=== PATIENT | female | born 1940 | race Caucasian/White ===

== ENCOUNTER 2016-10-24 16:40 | Inpatient (IN) | payer MEDICARE, BC ==
[~2016-10-24] VITALS: Ht 160 cm; Wt 56.0 kg
--- NOTE | 2016-10-26 13:57 | HP ---
ADMIT: 10/24/2016 RM/LOC: 413 [facility] MR#: [id number] [address] [address] [place] [address] History and Physical SEX: F AGE: 76 : 1940 DATE OF SERVICE: CHIEF COMPLAINT: Confusion and a fast heart rate. HISTORY OF PRESENT ILLNESS: This is a 76-year-old female with known Alzheimer disease, presented to the emergency room with increased confusion. She has been very confused at home. Even friends and family have been very worried about her. They ultimately took her to the emergency room after being directed that way after going to [place]. Upon presentation, she was found to have atrial fibrillation with RVR. She was put on some diltiazem drip which controlled her rhythm quite nicely, and did some other testing. She has been confused since she has been here, but has been doing okay. She initially was a little agitated at times, but overall cooperative. She denies any specific complaints. She is a really poor historian. All my history is taken from her past health records. PAST MEDICAL HISTORY: Past problems include: 1. Anxiety. 2. Diabetes type 2. 3. Hyperlipidemia. 4. Hypertension. 5. Dementia. 6. Osteoporosis. 7. Chronic kidney disease, stage 3. 8. Vitamin B12 deficiency. 9. Vitamin D deficiency. PAST SURGICAL HISTORY: She has had a tonsillectomy, hysterectomy, cataract extraction, and hammertoe repair. MEDICATIONS: 1. Vitamin D 1000 units. 2. Vitamin B12 at 100 mcg. 3. Cozaar 50 mg daily. 4. Lutein 6 mg daily. 5. Olanzapine 2.5 mg p.r.n. 6. Zoloft 25 mg p.r.n. It should be noted, it is uncertain if she was really taking these medicines. ALLERGIES: SHE HAS LISTED ALLERGIES TO ASPIRIN, KEFLEX, CLONIDINE, FISH OIL, GLUCOPHAGE, GLUCOTROL, GLUCOVANCE, AMLODIPINE, PROCHLORPERAZINE, AND STARLIX. IMMUNIZATIONS: She had a flu shot last fall. She had a Pneumovax in 2009. FAMILY HISTORY: Two sisters and a brother are . She has one brother who is alive. SOCIAL HISTORY: She has never been a smoker. No alcohol use. ADMIT: 10/24/2016 RM/LOC: 413 [facility] MR#: [id number] [address] [address] [address]ENN GOLDEN [address] [place] [address] History and Physical SEX: F AGE: 76 : 1940 REVIEW OF SYSTEMS: Other complete review of systems really unobtainable per the patient's poor memory. She actually does not know why she is here when I asked her at this time. PHYSICAL EXAMINATION: VITAL SIGNS: Temperature 97.2, pulse 58, respirations 14, blood pressure 174/68, oxygen saturation 98% on room air. GENERAL: A pleasant 76-year-old female. HEENT: Pupils are equal, round, and reactive to light and accommodation. Her extraocular muscles are intact. Her throat is clear. Head is normocephalic and atraumatic. NECK: Supple. Trachea midline. Thyroid not palpable. HEART: Irregular rhythm, but normal rate, at the current time in the 50s. LUNGS: Diminished, but clear bilaterally. ABDOMEN: Soft, without any signs of tenderness. EXTREMITIES: Her lower extremities have no edema. She can move all extremities equally bilaterally. NEURO: Cranial nerves are intact. She has a poor memory. LABORATORY AND X-RAY DATA: CBC with a white count of 7.9, hemoglobin 13.7, platelets of 250. Urinalysis was unremarkable. CMP showed creatinine of 1.7, BUN 28. CK and troponin are normal. ASSESSMENT: 1. Atrial fibrillation with rapid ventricular rate. 2. Mental status changes. 3. Dementia with likely delirium. 4. Chronic kidney disease. 5. Diabetes. 6. Hypertension. 7. Hyperlipidemia. PLAN: She is admitted to the hospital. Put her on a diltiazem drip. Continue to control her rates, they are controlled well now. Try to switch her to more of a beta-shubham. Give her some medicine to control her moods at night with a little Namenda at night. We will use the Zyprexa if needed. It has been made known by the family that they do not think she can live at home anymore, so we will make long-term care plans for her while she is in the hospital as well. Bang Gonzalez MD/ jose cruz JOB #: [id number] CC: Bang Gonzalez, Attending Physician Bang Gonzalez, Family Physician
--- NOTE | 2016-10-27 22:09 | NUR ---
PT WAS YELLING OUT, HITTING AT STAFF, AND THREATENING TO "BURN DOWN THIS ROOM". PT WAS ACCUSING STAFF OF STEALING HER PURSE, KEEPING HER SHOES FROM HER, AND STEALING THE RUG ON THE BED. STAFF REASSURED PT THAT HER THINGS ARE IN FACT IN HER ROOM, STAFF SHOWED PT HER THINGS AND PT STATED: "YOU JUST PUT THOSE HERE, THOSE WERE STOLEN BEFORE." PT AMBULATED TO BATHROOM WITHOUT ASSISTANCE AND REFUSED TO USE HER WALKER OR CANE. PT ALSO REFUSED TO USE GAIT BELT. AT THIS POINT, THIS ASSISTANT MANAGER/EMBALMER CALLS ROLL MECHANIC REQUESTING ASSISTANCE WITH PT AT THIS TIME. ROLL MECHANIC ASSURED THIS ASSISTANT MANAGER/EMBALMER SHE'S GOING TO HELP, WILL CALL IN A SITTER TO ASSIST WITH HELPING KEEP PT CALM. PT FINISHES, THEN ACCUSED STAFF OF STEALING THE TOILET TISSUE, STATING: "YOU JUST WANT ME TO GET SICK, YOU WANT ME TO HAVE SORES ON MY BUTT." PT WAS REASSURED THAT THIS WAS NOT THE CASE, SHOWED PT WHERE THE TOILET TISSUE WAS, PT REPLIED: "YOU JUST PUT THAT THERE, YOU TRYING TO UPSET ME." PT COMPLETED PERICARES INDEPENDENTLY, AMBULATED BACK TO BED WITHOUT ASSISTANCE. PT ATTEMPTED TO SCRATCH THIS ASSISTANT MANAGER/EMBALMER, STATING: "I'M GOING TO MAKE YOU PAY FOR MAKING ME STAY HERE. YOU JUST WATCH." THIS ASSISTANT MANAGER/EMBALMER MOVED ARMS OUT OF PT WAY, AND REDIRECTED PT TO TRY TO GET INTO BED. PT STATED: "I'LL GET IN DAMN BED WHEN I'M DAMN GOOD AND READY." THIS ASSISTANT MANAGER/EMBALMER ASSISTED PT WITH REMAKE OF BED TO PT SATISFACTION. PT GETS INTO BED AND TELLS THIS ASSISTANT MANAGER/EMBALMER: "YOU'RE SO DAMN STUPID, YOU JUST WAIT UNTIL YOU MEET YOUR MAKER, YOU'RE GOING TO GO STRAIGHT TO HELL. YOU JUST WATCH, I'LL BE WAITING TO SEE YOU BURN." PT IN BED, CALL LIGHT WITHIN REACH, BED ALARMS ON AND ACTIVE, SITTER ARRIVES.
[2016-11-02] MEDS ORDERED: ELIQUIS2.5 MG PO (14:28)
[2016-11-02] MEDS ORDERED: LOPRESSOR50 MG PO (14:28)
[2016-11-02] MEDS ORDERED: NAMENDA10 MG PO (14:28)
[2016-11-02] MEDS ORDERED: ZYPREXA5 MG PO (14:28)
[2016-11-02] MEDS ORDERED: ZYPREXA2.5 MG PO (14:29)
[2016-11-02] MEDS ORDERED: MYCOSTATIN PWD15 GM TP (14:29)
--- NOTE | 2016-11-05 09:41 | ER ---
ADMIT: 10/24/2016 RM/LOC: 413 [facility] MR#: [id number] [address] [address] [place] [address] Emergency Room Report SEX: F AGE: 76 : 1940 DATE: 10/24/2016 CHIEF COMPLAINT: Hypertension, not taking medications. HISTORY OF PRESENT ILLNESS: This is a 76-year-old female, who shows up with friend. It sounds like she has been very confused at home. They are worried about her. She actually took her to [facility] [employer]. They then suggested that she come to the ER. PAST MEDICAL HISTORY: Hypertension, diabetes, chronic kidney disease, history of hysterectomy, CHF. HOME MEDICATIONS: We did call [facility], she has not filled any medications since June. At that time, it was: 1. Amlodipine. 2. Losartan. 3. Citrulline. ALLERGIES: FURADANTIN AND ASPIRIN. SOCIAL HISTORY: Lives at home alone. Denies any tobacco, drug, or alcohol use. FAMILY HISTORY: Noncontributory. PHYSICAL EXAMINATION: VITAL SIGNS: Blood pressure 222/74, pulse is 44, respirations 18, temperature 94 orally, oxygen saturations is 99% on room air on arrival. GENERAL APPEARANCE: She was really actually in no acute distress and smiling. She is alert, but confused. HEENT: Pharynx is moist with no tonsillar swelling or exudate. TMs are non- erythemic bilateral. HEART: Initially bradycardic, but then it goes to regular rate and rhythm. LUNGS: CTA bilaterally. No wheezes, rales, or rhonchi. ABDOMEN: Soft, nontender. No distention. SKIN: Normal color, warm, and dry except for in her genital region, she is very excoriated. EXTREMITIES: No pedal edema bilateral. NEURO AND PSYCH: She is disoriented to time and place and situation. MOOD AND AFFECT: Normal. COURSE IN THE EMERGENCY ROOM: CBC, CMP, troponin, CK, CK-MB, and UA cath and EKG was done. EKG, we did try to catch when she went up to tachycardia as high as 170s. EKG that we caught was at a rate of 77 with atrial fibrillation, which we cannot find in the old history that she has a history ADMIT: 10/24/2016 RM/LOC: 413 [facility] MR#: [id number] [address] [address] GLENN GOLDEN [facility] [place] [address] Emergency Room Report SEX: F AGE: 76 : 1940 of. CMP is normal except for BUN of 28, creatinine 1.7, glucose 110. Her CK is normal at 191, her MB is elevated at 7.9. Her relative index is increased at 4, troponin is normal at 0.015. CBC is normal. Urine is clear except for 2+ protein. Dr. Gonzalez was called. He will admit the patient. CLINICAL IMPRESSION: 1. Atrial fibrillation with rapid ventricular rate. At this time, she did get a Cardizem 5 mg push. It is at a rate of 5 mg at this time. 2. Confusion, chronic, unsure if this patient is able to take care of herself at home. DISPOSITION: She is stable at admit. ROSAURA Pacheco / Amrik Geller MD / kameronl JOB #: [id number] CC: Bang Gonzalez MD, Attending Physician Bang Gonzalez MD, Family Physician
--- NOTE | 2016-11-07 14:19 | DS ---
ADMIT: 10/24/2016 RM/LOC: 413 [facility] MR#: [id number] [address] [address] [place] [address] Discharge Summary SEX: F AGE: 76 : 1940 ADMISSION DATE: 10/24/2016 DISCHARGE DATE: 10/31/2016 DISCHARGE DIAGNOSES: 1. Dementia. 2. Atrial fibrillation with RVR (rapid ventricular response). 3. Diabetes mellitus type 2, diet controlled. 4. Hypertension. DISCHARGE MEDICATIONS: Please refer to discharge medication list. DISCHARGE INSTRUCTIONS: Regular diet. Follow up with Isabela Silver in the office in 1-2 weeks. HOSPITAL COURSE: A 76-year-old, female with dementia who was been living at home, she has had neglect, inability to care for herself, not taking her medications, she was found wandering in the street. Please see H and P for complete details regarding admission. She has history of dementia with decline over this last year. She has episodes of paranoia. She has even apparently rekeyed her house and garage a few times and lost the keys. Called the remelt pan tank operator several times due to paranoia. She has not been taking her medications, at one point did not have food in her house or refrigerator. Overall, has been declining. She was taken to the emergency room and found to be in atrial fibrillation with RVR. She was started on a Cardizem drip. She ended up converting to sinus rhythm. Diltiazem drip was weaned off. She was started on beta shubham. Cardiac enzymes were obtained at admission and were negative. She was started on Namenda for her dementia. Also started on Eliquis for anticoagulation. Therapy was consulted. Therapy was unable to work with the patient at times due to patient not cooperative. [facility] were consulted to evaluate for placement upon discharge from the ADMIT: 10/24/2016 RM/LOC: 413 [facility] MR#: [id number] [address] [address] [place] [address] Discharge Summary SEX: F AGE: 76 : 1940 hospital. She had agitation, paranoia and delirium, she was started on Zyprexa. Required a sitter at bedside due to her delirium and confusion. By October 28, she continued with delirium occasionally, worse in the evening, owner's, not as agitated as she had been. Low-dose Zyprexa was also added to the morning in the a.m. medication routine and this seemed also to help with her behaviors. Social Work was consulted regarding discharge plans, she is being evaluated to dismiss to a facility, [facility]. Condition at this time is stable, she is weak with dementia. LABORATORY DATA: See lab summary for complete details. RADIOLOGY: See radiology reports for complete details. Isabela Mcarthur APRN / Bang Gonzalez MD / vdg JOB #: [id number] CC: Bang Gonzalez MD, Attending Physician Bang Gonzalez MD, Family Physician
[2016-11-11] MEDS ORDERED: SENOKOT S1 TAB PO (14:42)
[2016-11-11] MEDS ORDERED: TYLENOL EXTRA500 M1 PO (14:42)
[2016-11-11] MEDS ORDERED: MILK OF MAGNESI10 ML PO (14:43)
[2016-11-11] MEDS ORDERED: COLACE-DPS100 MG PO (14:43)
[2016-11-11] MEDS ORDERED: MAALOX DPS30 ML PO (14:43)
[2016-11-11] MEDS ORDERED: DULCOLAX-DPS10 MG PR (14:44)
[2016-11-11] MEDS ORDERED: LUTEIN6 M1 PO (14:45)
[2016-11-11] MEDS ORDERED: ZOLOFT DPS25 MG PO (14:45)
[2016-11-11] MEDS ORDERED: VITAMIN B-121000 MCG PO (14:45)
[2016-11-11] MEDS ORDERED: VITAMIN D31000 UNIT PO (14:45)
[2016-11-11] MEDS ORDERED: ULTRAM DPS50 MG PO (14:46)
== END 2016-10-31 13:00 | disposition home or self-care (01) | DRG 309 ==
LOC: ER 16:40 → 4PCU 18:51
PROVIDERS: ADMIT Internal Medicine
DX: I48.91 Unspecified atrial fibrillation (principal); I13.0 Hypertensive heart and chronic kidney disease with heart failure and stage 1 through stage 4 chronic kidney disease, or unspecified chronic kidney disease; E11.22 Type 2 diabetes mellitus with diabetic chronic kidney disease; I50.9 Heart failure, unspecified; F02.81 Dementia in other diseases classified elsewhere, unspecified severity, with behavioral disturbance; F05 Delirium due to known physiological condition; Z23 Encounter for immunization; G30.9 Alzheimer's disease, unspecified; F22 Delusional disorders; F41.9 Anxiety disorder, unspecified; E78.5 Hyperlipidemia, unspecified; M81.0 Age-related osteoporosis without current pathological fracture; N18.3 Chronic kidney disease, stage 3 (moderate); E53.8 Deficiency of other specified B group vitamins; E55.9 Vitamin D deficiency, unspecified; R41.0 Disorientation, unspecified; I25.2 Old myocardial infarction

== ENCOUNTER 2016-11-06 10:01 | Inpatient (IN) | payer MEDICARE, BC ==
[~2016-11-06] VITALS: Ht 160 cm; Wt 61.5 kg
[~2016-11-06 10:01] MED LIST: ELIQUIS2.5 MG PO; LOPRESSOR50 MG PO; MYCOSTATIN PWD15 GM TP; NAMENDA10 MG PO; ZYPREXA2.5 MG PO; ZYPREXA5 MG PO
--- NOTE | 2016-11-07 14:19 | HP ---
ADMIT: 11/06/2016 RM/LOC: 503 [facility] MR#: [id number] [address] [address] GLENN [place] [address] History and Physical SEX: F AGE: 76 : 1940 DATE OF SERVICE: CHIEF COMPLAINT: Fall with hip pain. HISTORY OF PRESENT ILLNESS: This is a 76-year-old female, she has a history of Alzheimer's dementia, osteoporosis, and recent atrial fibrillation episode. She presented to the hospital after a fall. Upon evaluation, she was found to have a cracked left hip, is nondisplaced. Orthopedist has evaluated her and felt this potentially could be managed nonoperatively as along as she can maintain 50% weightbearing and not fall again and complete the fracture, so she has been admitted because she will need more help with skilled care. The last time she was in the hospital, she had come in from home with AFib with RVR and some increased confusion and delirium. She was then discharged to [facility]. Unfortunately, she was stumbling and falling a lot and ultimately had this fall leading to this fracture. Past History, Social History, Family History; all reviewed from her last H and P and unchanged except for the addition of atrial fibrillation with RVR. MEDICATIONS: 1. Eliquis 2.5 mg b.i.d. 2. Metoprolol 25 mg daily. 3. She is also on memantine 10 mg b.i.d. 4. She was on olanzapine 5 mg in the evening, 2.5 in the morning. 5. B12 of 1000 mcg daily. 6. Vitamin C 500 mg daily. 7. Vitamin D3 of 1000 units daily. 8. Vitamin E 400 units daily. 9. Acetaminophen p.r.n. 10.Lutein 6 mg daily. REVIEW OF SYSTEMS: Other complete review of systems negative except for her underlying poor memory. PHYSICAL EXAMINATION: VITAL SIGNS: Temp 97.3, pulse 65, respirations 16, blood pressure is 182/90. GENERAL: This is a well-appearing 76-year-old female. She is in no apparent distress. She is not oriented. She keeps saying that she is in the basement of some building, but then does acknowledge she knows this is the hospital. She is quite suspicious. HEENT: She is wearing glasses. Pupils are equal, round, and reactive to light and accommodation. Her extraocular muscles are intact. Throat is clear, but she has a little dried mucus over her soft palate. She has dentures on the top. NECK: Supple. Trachea midline. Thyroid not palpable. HEART: Regular rate and rhythm. LUNGS: Clear to auscultation bilaterally. ABDOMEN: Soft without any tenderness. EXTREMITIES: Lower extremities, no edema. She moves her right leg. Denies ADMIT: 11/06/2016 RM/LOC: 503 [facility] MR#: [id number] [address] [place] [address] [place] [address] History and Physical SEX: F AGE: 76 : 1940 moving her left and actually denies she has problem with the leg. LABORATORY AND X-RAY DATA: EKG shows incomplete right bundle branch block, looks like normal sinus rhythm. CT of her hip showed the left hip fracture. ASSESSMENT: 1. Left hip fracture. 2. Dementia. 3. Chronic kidney disease, stage 3. 4. Diabetes. 5. Osteoporosis. 6. Atrial fibrillation. 7. Anticoagulation. PLAN: She has been admitted to the hospital. We will do some therapy for, get some social work, set up correction facility. Activity will be up with assist and 50% weightbearing. Bang Gonzalez MD/ jose cruz JOB #: [id number] CC: Bang Gonzalez, Attending Physician Bang Gonzalez, Family Physician
--- NOTE | 2016-11-11 12:26 | CO ---
ADMIT: 11/06/2016 RM/LOC: 503 [facility] MR#: [id number] [address] [address] [place] [address] Consultation SEX: F AGE: 76 : 1940 DATE OF CONSULTATION: 11/06/2016 ATTENDING PHYSICIAN: Bang Gonzalez CONSULTING PHYSICIAN: Glenn Bass MD REASON FOR CONSULTATION: Left hip fracture. HISTORY OF PRESENT ILLNESS: The patient is a 76-year-old female, who came into the emergency room this morning. She is with her son currently. Did x- rays and CT scan. She definitely has a fairly large greater trochanteric fracture, questionable extension into the intertrochanteric region. The medial calcar does appear to be intact after I reviewed all the studies. Her son states she probably fell on Thursday injuring her left hip. She has been walking and weightbearing on this since that time. Says she does not have a whole lot of pain but is uncomfortable, particularly with weightbearing and walking on this. She was then admitted to the hospital and we were consulted for further evaluation and treatment of her hip. PAST MEDICAL HISTORY: Significant for anxiety, type 2 diabetes, hyperlipidemia, hypertension, dementia, osteoporosis, chronic kidney disease stage 3, and atrial fibrillation. CURRENT MEDICATIONS: Please see her medication sheet and nurses MAR. ALLERGIES: LISTED ALLERGIES INCLUDE ASPIRIN, KEFLEX, CLONIDINE, FISH OIL, GLUCOPHAGE, GLUCOTROL, GLUCOVANCE, AMLODIPINE, PROCHLORPERAZINE, AND STARLIX. SOCIAL HISTORY: The patient denies alcohol or tobacco use. [facility]. REVIEW OF SYSTEMS: Noncontributory. PHYSICAL EXAMINATION: HEENT, heart, lungs, and abdomen as per primary care's evaluation. EXTREMITIES: Examination of left lower extremity, no gross shortening or external rotation here. She has tenderness over the lateral aspect of the hip. There is some bruising here. I am actually able to range her hip fairly well without any groin pain. She does have some pain laterally with this. She appears to be otherwise distally neurovascularly intact. IMAGING: Once again x-rays and CT scan are reviewed at length. On the plain x-rays, she appears to have mostly some greater trochanteric fracture. On CT scan, this was also present and may be little extension into the intertrochanteric area, but I do not believe going more than fpc across here and I do not see any disruption of the medial-posteromedial calcar here. ASSESSMENT: Right hip greater trochanteric fracture with maybe some extension into the intertrochanteric region. ADMIT: 11/06/2016 RM/LOC: 503 [facility] MR#: [id number] [address] [address] GLENN GOLDEN [address] [place] [address] Consultation SEX: F AGE: 76 : 1940 PLAN: We discussed the treatment options at length with the patient and her son including operative versus non operative. I told that we could certainly try a course of protected weightbearing using a walker, really could not give them what the chances are for falling and completing this fracture as long as she does not fall and maintains her protected weightbearing, this probably most likely heal. We also talked about surgical treatment which would include a trochanteric fixation nail. They both really did not want to proceed with surgical treatment at this point. We did tell them that if her fracture does occur, completes further, if she had another fall that would probably require TFN, they do understand this. At this time, they do wish to proceed with continued non operative treatment. At this point, we will have therapy see her for protected weightbearing on the left lower extremity with no more than 50% body weight here. We will follow her closely and check her in the office in 10-14 days with another x-ray and see how she is doing clinically at that point. I did tell them that once again that if this fracture completes or she falls and completes this that I would probably recommend surgical treatment of this at that point. They do understand agree with the treatment plan at this point. Glenn Bass MD/ jose cruz JOB #: [id number] CC: Bang Gonzalez, Attending Physician Bang Gonzalez, Family Physician
[2016-11-11] MEDS ORDERED: TYLENOL EXTRA500 M1 PO (14:42)
[2016-11-11] MEDS ORDERED: SENOKOT S1 TAB PO (14:42)
[2016-11-11] MEDS ORDERED: MAALOX DPS30 ML PO (14:43)
[2016-11-11] MEDS ORDERED: MILK OF MAGNESI10 ML PO (14:43)
[2016-11-11] MEDS ORDERED: COLACE-DPS100 MG PO (14:43)
[2016-11-11] MEDS ORDERED: DULCOLAX-DPS10 MG PR (14:44)
[2016-11-11] MEDS ORDERED: VITAMIN B-121000 MCG PO (14:45)
[2016-11-11] MEDS ORDERED: VITAMIN D31000 UNIT PO (14:45)
[2016-11-11] MEDS ORDERED: ZOLOFT DPS25 MG PO (14:45)
[2016-11-11] MEDS ORDERED: LUTEIN6 M1 PO (14:45)
[2016-11-11] MEDS ORDERED: ULTRAM DPS50 MG PO (14:46)
--- NOTE | 2016-11-14 08:54 | ER ---
ADMIT: 11/06/2016 RM/LOC: 503 [facility] MR#: [id number] [address] [address] [place] [address] Emergency Room Report SEX: F AGE: 76 : 1940 DATE: 11/06/2016 HISTORY OF PRESENT ILLNESS: She lives at [facility] and she was brought in by her son who got a call in by the resident nurse stating that his mom has fallen last night. She continues to walk on that hip, but she says very carefully. She has a skin tear in her right lateral forearm. She is uncertain if she hit her head or not, but is on Eliquis for atrial fibrillation. No loss of consciousness. Left hip pain when she was brought out of the vehicle that transported her in. REVIEW OF SYSTEMS: Otherwise negative. PAST MEDICAL HISTORY: 1. Hysterectomy. 2. B12 deficiency. 3. Anxiety. 4. Memory loss. 5. Hypertension. 6. Hyperlipidemia. 7. Menopausal state. 8. Osteoporosis. 9. Renal insufficiency. 10.Diabetes type 2. 11.Vitamin D deficiency. 12.Confusion. 13.Paranoid. 14.Dementia with behavioral disturbances. 15.PAF. ALLERGIES: SHE IS ALLERGIC TO SEVERAL MEDICATIONS WHICH INCLUDE ASPIRIN, CEPHALEXIN, CLONIDINE, FISH OIL, METFORMIN, GLIPIZIDE, GLYBURIDE, AMLODIPINE, PROCHLORPERAZINE, AND NATEGLINIDE. MEDICATIONS: 1. Eliquis. 2. Lutein. 3. Memantine. 4. Metoprolol. 5. Olanzapine. 6. Vitamin B12. 7. Vitamin C. 8. Vitamin D3. 9. Vitamin E. 10.Acetaminophen p.r.n. PHYSICAL EXAMINATION: GENERAL: A very pleasant, well-nourished and well- developed female. She is alert. Son at bedside. VITAL SIGNS: Blood pressure 180/66 with a heart rate of 61, respirations 14, O2 sats 99%. Temp is 97.4. ADMIT: 11/06/2016 RM/LOC: 503 [facility] MR#: [id number] [address] [address] [place] [address] Emergency Room Report SEX: F AGE: 76 : 1940 MUSCULOSKELETAL: Foot, normal inspection. Ankle, normal inspection. Leg, bruise to the right upper thigh with right hip and left hip pain. Knee, within normal limits. She has tenderness and ecchymosis in the right side of her leg. Gait is antalgic, but still tries to walk on it. SKIN: As described above. Rest of the physical examination is negative. EMERGENCY ROOM COURSE: I contacted Dr. Bass as a report of the CT shows femoral neck fracture, he requested an x-ray done, they took a look at it and read it as an intertrochanteric fracture. After orders received for surgery, she will be non-weight bearing. I will contact Dr. Gonzalez for admission. Dr. Bass will come in to visit with the patient, and she needs placement in a facility for total round the clock care. CLINICAL IMPRESSION: 1. Left femoral intertrochanteric fracture. 2. Dementia. 3. Renal insufficiency. Dr. Gonzalez requested that we stop the Eliquis immediately. Orders have been received. A head CT was done as well that came back negative for any pathology. I was unable to get any information from her if she had hit her head or not, so I went ahead and got the CT scan done. She has not requested any medication for pain. She seems pretty comfortable. A Vazquez catheter has been placed, and IV saline lock also is in place. ROSAURA Vaca / Tomasz Fish MD / jose cruz JOB #: [id number] CC: Bang Gonzalez MD, Attending Physician Bang Gonzalez MD, Family Physician
--- NOTE | 2016-11-30 08:54 | DS ---
ADMIT: 11/06/2016 RM/LOC: 503 [facility] MR#: [id number] [address] [address] CHANTELGLENN [place] [address] General Discharge Summary SEX: F AGE: 76 : 1940 ADMISSION DATE: 11/06/2016 DISCHARGE DATE: 11/10/2016 FINAL DIAGNOSES: 1. Incomplete hip fracture. 2. Dementia. 3. Chronic kidney disease stage III. 4. Diabetes. 5. Osteoporosis. 6. Atrial fibrillation. REASON FOR ADMISSION: See dictated H and P. Briefly, this is a 76-year-old female, who presented with hip pain after a fall, found to have a hip fracture. HOSPITAL COURSE: She was admitted and ultimately deemed to really not need surgery, but needed to be on activity restriction. She initially was thought to get set up to go to skilled care and ultimately was felt best for her to go back to her assisted living where they can keep a closer eye on her, so this was done. She discharge medications list for that list. She will be maintained on Eliquis 2.5 mg b.i.d. for VTE prophylaxis. Bang Gonzalez MD/ jose cruz JOB #: [id number] CC: Bang Gonzalez MD, Attending Physician Bang Gonzalez MD, Family Physician
== END 2016-11-10 11:00 | disposition home health service (06) | DRG 536 ==
LOC: ER 10:01 → 5MS 11:25
PROVIDERS: ADMIT Internal Medicine
DX: S72.145A Nondisplaced intertrochanteric fracture of left femur, initial encounter for closed fracture (principal); N17.9 Acute kidney failure, unspecified; E11.22 Type 2 diabetes mellitus with diabetic chronic kidney disease; G30.9 Alzheimer's disease, unspecified; D62 Acute posthemorrhagic anemia; F02.81 Dementia in other diseases classified elsewhere, unspecified severity, with behavioral disturbance; I48.0 Paroxysmal atrial fibrillation; R33.9 Retention of urine, unspecified; S51.811A Laceration without foreign body of right forearm, initial encounter; W19.XXXA Unspecified fall, initial encounter; E53.8 Deficiency of other specified B group vitamins; F41.9 Anxiety disorder, unspecified; N18.3 Chronic kidney disease, stage 3 (moderate); R41.3 Other amnesia; E78.5 Hyperlipidemia, unspecified; M81.0 Age-related osteoporosis without current pathological fracture; I12.9 Hypertensive chronic kidney disease with stage 1 through stage 4 chronic kidney disease, or unspecified chronic kidney disease; Z79.01 Long term (current) use of anticoagulants